=== PATIENT | male | born 2000 | race Caucasian/White ===

== ENCOUNTER 2022-09-24 13:33 | Emergency (ER) | payer OTHER ==
[~2022-09-24] VITALS: Ht 175.3 cm; Wt 63.5 kg
[2022-09-24 13:47] VITALS: BP 131/62
[2022-09-24] MEDS ORDERED: IBUPROFEN 600 MG TAB PO ONE (14:00)
[2022-09-24] MEDS ORDERED: BACITRACIN OINT 500 UNITS/GM PKT TP ONE (15:29)
[2022-09-24] MEDS ORDERED: BACI-416 TP (15:34)
[2022-09-24] MEDS ORDERED: IBUP-2213 PO (15:37)
[2022-09-24] MEDS: BACITRACIN OINT 500 UNITS/GM PKT TP ONE ×2 (15:49→15:50)
[2022-09-24 16:00] VITALS: BP 131/62
== END 2022-09-24 16:00 | disposition home or self-care (01) ==
LOC: MED 13:33
DX: S60.410A Abrasion of right index finger, initial encounter (principal); W23.0XXA Caught, crushed, jammed, or pinched between moving objects, initial encounter; Y93.89 Activity, other specified; Y92.89 Other specified places as the place of occurrence of the external cause; Y99.0 Civilian activity done for income or pay
CPT/HCPCS: 73140; 99283